=== PATIENT | male | born 1990 | race Caucasian/White ===

== ENCOUNTER 2017-12-10 00:06 | Emergency (ER) | payer BC ==
[~2017-12-10 00:06] MED LIST: CHLO.12%30 SSP; IBUP800T23 PO; PENI500T PO; ZITHTAB PO
[2017-12-10 00:09] VITALS: BP 165/86; PULSE 114; RESP 16; TEMP 98.3; O2SAT 100
[2017-12-10] MEDS ORDERED: VENL75TA PO (00:10)
[2017-12-10] MEDS ORDERED: GABA400C5 PO (00:10)
[2017-12-10] MEDS ORDERED: SERO400T PO (00:10)
[2017-12-10] MEDS ORDERED: IBUPROFEN 800 MG TAB PO ONE (00:30)
[2017-12-10] MEDS ORDERED: CYCLOBENZAPRINE HCL 10 MG TAB PO ONE (00:30)
[2017-12-10] MEDS ORDERED: IBUP1TAB7 PO (00:46)
[2017-12-10] MEDS ORDERED: CYCL10TA PO (00:46)
--- NOTE | 2017-12-10 00:46 | PD ---
HPI Chief Complaint: Injury Time Seen by Provider: 00:15 Travel History International Travel<30 days: No Contact w/Intl Traveler<30days: No Traveled to known affect area: No History of Present Illness HPI Patient is a 27-year-old male presented to emergency from for evaluation of right elbow pain. Patient states that he was helping a friend lift boxes into the back of a pickup truck and after they were done and he experiences pain. He states is painful to flex and extend his elbow. He denies any injury or trauma. He reports his pain as a 7 out of 10 and states it is sore and shooting. He denies any numbness, tingling, weakness. Symptoms are exacerbated with movement. Symptom onset was sudden. There had been no alleviating factors. PFSH Past Medical History Bipolar Disorder: Yes Diminished Hearing: No Hepatitis: Yes (C) Seizures: Yes Past Surgical History Surgical History: No Previous Surgery Social History Alcohol Use: No Tobacco Use: No (VAPE) Substance Use: Yes Allergies-Medications (Allergen,Severity, Reaction): Coded Allergies: cefaclor (Unverified Allergy, Severe, Swelling, 12/10/17) Reported Meds & Prescriptions Reported Meds & Active Scripts Active Flexeril (Cyclobenzaprine HCl) 10 Mg Tab 10 Mg PO TID PRN Ibuprofen 800 Mg Tab 800 Mg PO Q6HR PRN Reported Seroquel (Quetiapine Fumarate) 400 Mg Tab 400 Mg PO HS Effexor (Venlafaxine HCl) 75 Mg Tab 75 Mg PO DAILY Gabapentin 400 Mg Cap 400 Cap PO TID Review of Systems Except as stated in HPI: all other systems reviewed are Neg Musculoskeletal: Positive: Myalgias, Cramping, Pain Physical Exam Narrative GENERAL: Well-developed, well-nourished, alert male. Resting comfortably in no acute distress. SKIN: Warm and dry. HEAD: Normocephalic. EYES: No scleral icterus. No injection or drainage. NECK: Supple, trachea midline. No JVD or lymphadenopathy. CARDIOVASCULAR: Regular rate and rhythm without murmurs, gallops, or rubs. RESPIRATORY: Breath sounds equal bilaterally. No accessory muscle use. GASTROINTESTINAL: Abdomen soft, non-tender, nondistended. MUSCULOSKELETAL: No cyanosis, or edema. No obvious deformities noted. Decreased active range of motion with flexion and extension of right elbow. 2+ radial pulse, brisk less than 3 second capillary refill. BACK: Nontender without obvious deformity. No CVA tenderness. Data Data Last Documented VS Vital Signs Date Time Temp Pulse Resp B/P (MAP) Pulse Ox O2 Delivery O2 Flow Rate FiO2 12/10/17 00:09 98.3 114 16 165/86 (112) 100 Orders Orders Ibuprofen (Motrin) (12/10/17 00:30) Cyclobenzaprine (Flexeril) (12/10/17 00:30) Hosea Bandage (12/10/17 00:27) Ice/Cold Pack (12/10/17 00:27) Ed Discharge Order (12/10/17 00:47) MDM Medical Decision Making Medical Screen Exam Complete: Yes Emergency Medical Condition: Yes Interpretation(s) Vital Signs Date Time Temp Pulse Resp B/P (MAP) Pulse Ox O2 Delivery O2 Flow Rate FiO2 12/10/17 00:09 98.3 114 16 165/86 (112) 100 Differential Diagnosis Tendinitis versus sprain versus strain versus less likely dislocation versus other Narrative Course Patient's 27-year-old male presenting with right elbow pain that started 2 hours prior to arrival after lifting boxes. Patient is neurovascularly intact. Exam appears most consistent with a tendinitis. Patient was given ibuprofen and Flexeril emergency department as well as an Hosea bandage and ice pack. He is encouraged to continue the range of motion exercises, apply ice and heat, avoid exacerbating activities. He is encouraged follow-up with a primary doctor return to emergency department for any new or worsening symptoms. Patient verbalized understanding of instructions. Patient is stable for discharge. Diagnosis Primary Impression: Elbow tendonitis Referrals: Primary Care Physician Patient Instructions: General Instructions, Tendinitis (ED) Additional Instructions: Perform gentle range of motion exercises, apply warm heat to the affected areas , avoid exacerbating activities. Take medications as directed Follow up with a primary doctor Return to the ED for any new or worsening symptoms Med/Other Pt SpecificInfo: Prescription(s) given Scripts Cyclobenzaprine (Flexeril) 10 Mg Tab 10 MG PO TID Y for MUSCLE PAIN, #30 TAB 0 Refills Prov: Gladys Hardwick 12/10/17 Ibuprofen (Ibuprofen) 800 Mg Tab 800 MG PO Q6HR Y for PAIN, #40 TAB 0 Refills Prov: Gladys Hardwick 12/10/17 Disposition: 01 DISCHARGE HOME Condition: Stable Gladys Hardwick Dec 10, 2017 00:46
== END 2017-12-10 01:28 | disposition home or self-care (01) ==
LOC: NEPD 00:06
DX: M77.9 Enthesopathy, unspecified (principal)
CPT/HCPCS: 99283